=== PATIENT | male | born 1995 | race Caucasian/White ===

== ENCOUNTER 2022-03-07 07:04 | Inpatient (IN) | payer OTHER ==
--- OUTSIDE RECORDS SUMMARY | 2022-03-07 07:07 | XMS REPORT | Continuity of Care Document ---
:1995 Author Organization [facility] Address [address] [place] [address] [address]. [address] [place] [address] Care Team Providers Name Role Phone RJ Attending Clinician Unavailable DOBSON Attending Clinician Unavailable Problems This patient has no known problems. Allergies, Adverse Reactions, Alerts Allergy Allergy Status Severity Reaction(s) Onset Inactive Treating Comm ents Source Name Type Date Date Clinician NO KNOWN Allergy Active [facility] Medications This patient has no known medications. Procedures This patient has no known procedures. Encounters Start End Encounter Admission Attending Care Care Encounter Source Date/Time Date/Time Type Type Clinicians Facility Department ID 2020-04-16 2020-04-16 Outpatient RJ, [facility] [id number] [place] 00:00:00 00:00:00 BARBRA 892 Method i 2020-04-16 2020-04-16 Outpatient RJ, [facility] [id number] [place] 00:00:00 00:00:00 BARBRA 126 Method i 2020-03-04 2020-03-04 Outpatient DOBSON, [facility] [id number] [place] 00:00:00 00:00:00 JOSE 517 Method i 2019-12-24 2019-12-24 Emergency [facility] [id number] [facility] 21:49:00 21:49:00 [id number] Results Test Description Test Time Test Comments Results Result [facility] e Comments RAD, SPINE, 2019-12-24 Reason for FINAL REPORT PATIENT LUMBAR, COMPLETE 22:41:00 exam:->FALLnon ID: [id number] RAD, (MIN 4 VIEWS) syncopal /fell SPINE, LUMBAR, off a stationary COMPLETE (MIN 4 truck approx 7ft VIEWS) CLINICAL high Reason for INDICATION: FALL. exam:->BACK BACK PAIN PAINLOWER COMPARISON: None FINDINGS: Five views of the lumbar spine were obtained. Vertebral body heights and alignment are maintained. There is no spondylolysis. The intervertebral disc space heights are preserved. The bilateral sacroiliac joints are patent. The sacrum is partially obscured by overlying stool and bowel gas. IMPRESSION: No vertebral body compression fracture or subluxation. Signed: Yris Edwards [facility] Verified Date/Time: 12/24/2019 22:41:14
[2022-03-07] MEDS ORDERED: MAGNES/ALUMIN/SIMET 30ML UCUP ONE (08:23)
[2022-03-07 08:24] LABS: Absolute Lymphocytes (CBC) 2.3 K/uL (0.7-4.9); Hematocrit 46.4 % (39.6-49.0); Lymphocytes % 12.7 % (15.3-44.8); MPV 7.7 fL (7.6-11.3); RBC Red Blood Cell Count 5.38 M/uL (4.33-5.43)
[2022-03-07] MEDS ORDERED: NA CHLORIDE 0.9% 1,000 ML ONE (08:24)
[2022-03-07] MEDS ORDERED: ONDANSETRON 4 MG/2 ML VIAL ONE ×3 (08:24→18:24)
[2022-03-07] MEDS ORDERED: LIDOCAINE VISCOUS 2% SOLN 15 ML UDC ONE (08:24)
[2022-03-07] MEDS ORDERED: FAMOTIDINE 20 MG TAB ONE (08:24)
[2022-03-07] MEDS ORDERED: MORPHINE 4 MG/ML SYR ONE (08:24)
[2022-03-07 08:41] LABS: Albumin 4.1 g/dL (3.4-5.0); Bilirubin Total 0.6 mg/dL (0.2-1.0); Potassium 3.8 mmol/L (3.5-5.1); Protein, Total 7.6 g/dL (6.4-8.2)
[2022-03-07 10:01] LABS: Urine Blood Negative (Negative); Urine Glucose Negative (Negative); Urine Protein 1+ (Negative); Urine Specific Gravity >=1.030 (1.005-1.030)
--- NOTE | 2022-03-07 10:30 | RAD REPORT ---
EXAM DESCRIPTION: CTAbdomen Pelvis W Contrast - 03/07/2022 10:14 am CLINICAL HISTORY: Abdominal pain. Abdominal pain, acute, nonlocalized COMPARISON: <Comparisons> TECHNIQUE: Biphasic CT imaging of the abdomen and pelvis was performed with 100 ml non-ionic IV cont rast. All CT scans are performed using dose optimization technique as appropriate and may include automated exposure control or mA/KV adjustment according to patient size. FINDINGS: The lung bases are clear. The liver, spleen, pancreas, adrenal glands and kidneys are within normal limits. No bowel obstruction, free air, free fluid or abscess. The appendix is dilated to 9-10 mm with a sma ll amount of surrounding inflammation. No evidence of significant lymphadenopathy. No suspicious bony findings. IMPRESSION: Findings suspicious for early acute appendicitis.
[2022-03-07] MEDS ORDERED: NA CHLORIDE 0.9% 100 ML IV ONE (11:10)
[2022-03-07] MEDS ORDERED: PIPERACIL/TAZO 3.375 GM VIAL IV ONE (11:10)
--- NOTE | 2022-03-07 12:37 | EDPHYS ---
Physician Documentation [facility] Name: Sky Suarez Age: 26 yrs Sex: Male : 1995 Arrival Date: 03/07/2022 Time: 07:06 Bed 20 Private MD: ED Physician Yordan Romero HPI: 03/07 08:04 This 26 yrs old Male presents to ER via Ambulatory with complaints of Abdominal Pain. ma2 08:04 Onset: The symptoms/episode began/occurred gradually, 1 day(s) ago. Associated signs ma2 and symptoms: Pertinent negatives: nausea and vomiting, blood in stools, constipation, dysuria, fever, hematuria, palpitations, vomiting, vomiting blood. Severity of pain: At its worst the pain was moderate in the emergency department the pain is unchanged. epigastric abd pain. Historical: - Allergies: 07:15 No Known Allergies; ss - Home Meds: 07:15 Adderall XR Oral [Active]; ss - PMHx: 07:15 ADD; ss - PSHx: 07:15 None; ss - Immunization history:: Client reports having NOT received the Covid vaccine. - Social history:: Smoking status: Reported history of juuling and/or vaping. Patient uses alcohol, street drugs, marijuana, + vape, The patient lives. - Family history:: not pertinent. ROS: 08:04 Constitutional: Negative for fever, chills, and weight loss. ma2 08:04 All other systems are negative. Exam: 08:04 Constitutional: This is a well developed, well nourished patient who is awake, alert, ma2 and in no acute distress. Chest/axilla: Normal chest wall appearance and motion. Nontender with no deformity. No lesions are appreciated. Cardiovascular: Regular rate and rhythm with a normal S1 and S2. No gallops, murmurs, or rubs. Normal PMI, no JVD. No pulse deficits. Respiratory: Lungs have equal breath sounds bilaterally, clear to auscultation and percussion. No rales, rhonchi or wheezes noted. No increased work of breathing, no retractions or nasal flaring. Abdomen/GI: Soft, non-tender, with normal bowel sounds. No distension or tympany. No guarding or rebound. No evidence of tenderness throughout. Skin: Warm, dry with normal turgor. Normal color with no rashes, no lesions, and no evidence of cellulitis. MS/ Extremity: Pulses equal, no cyanosis. Neurovascular intact. Full, normal range of motion. Neuro: Awake and alert, GCS 15, oriented to person, place, time, and situation. Cranial nerves II-XII grossly intact. Motor strength 5/5 in all extremities. Sensory grossly intact. Cerebellar exam normal. Normal gait. Vital Signs: 07:13 BP 146 / 91; Pulse 83; Resp 16; Temp 98.1(TE); Pulse Ox 99% on R/A; Weight 95.25 kg; ss Height 6 ft. 0 in. (182.88 cm); Pain 7/10; 11:52 BP 104 / 62; Pulse 60; Resp 15; Pulse Ox 98% on R/A; ll1 07:13 Body Mass Index 28.48 (95.25 kg, 182.88 cm) ss MDM: 07:54 Patient medically screened. ma2 12:35 Differential diagnosis: cholecystitis, Cholelithiasis, diverticulitis, gastritis. Data ma2 reviewed: vital signs, nurses notes. Counseling: I had a detailed discussion with the patient and/or guardian regarding: the historical points, exam findings, and any diagnostic results supporting the discharge/admit diagnosis, the presence of at least one elevated blood pressure reading (>120/80) during this emergency department visit, the need for outpatient follow up. 03/07 08:04 Order name: CBC with Diff; Complete Time: 09:55 [facility] 03/07 08:04 Order name: CMP; Complete Time: 09:55 [facility] 03/07 08:04 Order name: Lipase; Complete Time: 09:55 [facility] 03/07 08:04 Order name: Urine Microscopic Only [facility] 03/07 10:02 Order name: Urine Dipstick-Ancillary; Complete Time: 10:58 [facility] 03/07 11:05 Order name: COVID-19 SARS RT PCR (Document "Date of Onset" if Symptomatic) 03/07 09:56 Order name: CT Abd/Pelvis - IV Contrast Only; Complete Time: 10:58 [facility] 03/07 12:45 Order name: Basic Metabolic Panel EDME 03/07 12:45 Order name: Basic Metabolic Panel [facility] 03/07 12:45 Order name: CBC with Automated Diff EDMS 03/07 12:45 Order name: CBC with Automated Diff EDMS 03/07 08:04 Order name: IV Saline Lock; Complete Time: 08:14 [facility] 03/07 08:04 Order name: Labs collected and sent; Complete Time: 08:14 [facility] 03/07 11:00 Order name: NPO; Complete Time: 11:02 [facility] 03/07 12:45 Order name: NPO; Complete Time: 14:25 EDMS Administered Medications: 08:38 Drug: Pepcid (famotidine) 20 mg {Note: given PO.} Route: IVP; Site: Other; ll1 11:01 Follow up: Response: No adverse reaction ll1 08:38 Drug: Zofran (Ondansetron) 4 mg Route: IVP; Site: right antecubital; ll1 11:01 Follow up: Response: No adverse reaction ll1 08:39 Drug: NS 0.9% 1000 ml Route: IV; Rate: 1 bolus; Site: right antecubital; ll1 09:51 Follow up: Response: No adverse reaction; IV Status: Completed infusion; IV Intake: ll1 1000ml 08:39 Drug: morphine 4 mg Route: IVP; Site: right antecubital; ll1 11:02 Follow up: Response: No adverse reaction ll1 08:39 Drug: GI Cocktail without - (Maalox Suspension 30 ml, Lidocaine Liquid 2 % 15 ll1 ml) Route: PO; 11:02 Follow up: Response: No adverse reaction ll1 11:15 Drug: Zosyn (piperacillin-tazobactam) 3.375 grams Route: IVPB; Infused Over: 60 mins; ll1 Site: right antecubital; 12:22 Follow up: Response: No adverse reaction; IV Status: Completed infusion; IV Intake: ll1 100ml Disposition Summary: 03/07/22 12:36 Hospitalization Ordered Hospitalization Status: Inpatient Admission ma2 Provider: Jose Geiger Condition: Stable ma2 Problem: new ma2 Symptoms: are unchanged ma2 Bed/Room Type: Standard ma2 Location: Telemetry/MedSurg (observation)(03/07/22 15:07) dw Room Assignment: [facility](03/07/22 15:07) dw Diagnosis - Unspecified acute appendicitis ma2 Discharge Instructions: - Discharge Summary Sheet ma2 - Abdominal Pain, Adult ma2 Forms: - Medication Reconciliation Form ma2 - SBAR form ma2 Prescriptions: - Zofran 4 mg Oral Tablet - take 1 tablet by ORAL route every 12 hours As needed; 20 tablet; Refills: 0, ma2 Product Selection Permitted - Pepcid 20 mg Oral Tablet - take 1 tablet by ORAL route once daily; 20 tablet; Refills: 0, Product ma2 Selection Permitted Signatures: Dispatcher [employer] Neetu Quarles RN RN dw Wendy Amaro RN RN Yordan Romero MD MD ma2 Ezeqiuel Batres RN RN ll1 Corrections: (The following items were deleted from the chart) 07:16 07:15 Home Meds: None; [facility] 07:16 07:15 PMHx: None; [facility] 15:07 12:36 Telemetry/MedSurg (Inpatient) ca2 15:07 12:36 ma2 dw
--- NOTE | 2022-03-07 12:37 | ER ---
Nurse's Notes [facility] Name: Sky Suarez Age: 26 yrs Sex: Male : 1995 Arrival Date: 03/07/2022 Time: 07:06 Bed 20 Private MD: Diagnosis: Unspecified acute appendicitis Presentation: 03/07 07:13 Chief complaint: Patient states: stabbing epigastric pain that began last night. Pt ss reports he took Pepto before going to bed which helped just enough to help him sleep. Coronavirus screen: Client denies travel out of the [place] in the last 14 days. Ebola Screen: Patient denies exposure to infectious person. Patient denies travel to an Ebola-affected area in the 21 days before illness onset. Initial Sepsis Screen: Does the patient meet any 2 criteria? No. Patient's initial sepsis screen is negative. Does the patient have a suspected source of infection? No. Patient's initial sepsis screen is negative. Risk Assessment: Do you want to hurt yourself or someone else? Patient reports no desire to harm self or others. Onset of symptoms was March 08, 2022. 07:13 Method Of Arrival: Ambulatory ss 07:13 Acuity: DINO 3 ss Triage Assessment: 12:20 General: Appears in no apparent distress. Behavior is calm, cooperative. ll1 Historical: - Allergies: 07:15 No Known Allergies; ss - Home Meds: 07:15 Adderall XR Oral [Active]; ss - PMHx: 07:15 ADD; ss - PSHx: 07:15 None; ss - Immunization history:: Client reports having NOT received the Covid vaccine. - Social history:: Smoking status: Reported history of juuling and/or vaping. Patient uses alcohol, street drugs, marijuana, + vape, The patient lives. - Family history:: not pertinent. Screenin:41 Abuse screen: Denies threats or abuse. Nutritional screening: No deficits noted. ll1 Tuberculosis screening: No symptoms or risk factors identified. Fall Risk IV access (20 points). Total Torres Fall Scale indicates No Risk (0-24 pts). Assessment: 08:15 Pain: Complains of pain in abdomen Pain currently is 6 out of 10 on a pain scale. ll1 Quality of pain is described as crampy, sharp. GI: Bowel sounds present X 4 quads. Abd is soft and non tender X 4 quads. Reports upper abdominal pain, cramping, diarrhea, nausea. 08:41 Reassessment: No changes from previously documented assessment. Patient and/or family ll1 updated on plan of care and expected duration. Pain level reassessed. Patient is alert, oriented x 3, equal unlabored respirations, skin warm/dry/pink. 09:30 Reassessment: No changes from previously documented assessment. Patient and/or family ll1 updated on plan of care and expected duration. Pain level reassessed. Patient is alert, oriented x 3, equal unlabored respirations, skin warm/dry/pink. 10:30 Reassessment: No changes from previously documented assessment. Patient and/or family ll1 updated on plan of care and expected duration. Pain level reassessed. Patient is alert, oriented x 3, equal unlabored respirations, skin warm/dry/pink. 11:30 Reassessment: No changes from previously documented assessment. Patient and/or family ll1 updated on plan of care and expected duration. Pain level reassessed. Patient is alert, oriented x 3, equal unlabored respirations, skin warm/dry/pink. Vital Signs: 07:13 BP 146 / 91; Pulse 83; Resp 16; Temp 98.1(TE); Pulse Ox 99% on R/A; Weight 95.25 kg; ss Height 6 ft. 0 in. (182.88 cm); Pain 7/10; 11:52 BP 104 / 62; Pulse 60; Resp 15; Pulse Ox 98% on R/A; ll1 07:13 Body Mass Index 28.48 (95.25 kg, 182.88 cm) ED Course: 07:06 Patient arrived in ED. mr 07:15 Triage completed. ss 07:15 Arm band placed on right wrist. ss 07:53 Ezequiel Batres, PRASANTH is Primary Nurse. ll1 07:53 Patient placed in an exam room, on a stretcher. ll1 07:54 Yordan Romero MD is Attending Physician. ma2 08:13 Bed in low position. Call light in reach. Side rails up X 1. tp1 08:13 Inserted saline lock: 20 gauge in right antecubital area, using aseptic technique. tp1 Blood collected. 10:16 CT Abd/Pelvis - IV Contrast Only In Process Unspecified. EDNM 12:20 No provider procedures requiring assistance completed. Patient admitted, IV remains in ll1 place. 12:36 Jose Geiger MD is Hospitalizing Provider. ma2 Administered Medications: 08:38 Drug: Pepcid (famotidine) 20 mg {Note: given PO.} Route: IVP; Site: Other; ll1 11:01 Follow up: Response: No adverse reaction 1 08:38 Drug: Zofran (Ondansetron) 4 mg Route: IVP; Site: right antecubital; ll1 11:01 Follow up: Response: No adverse reaction 1 08:39 Drug: NS 0.9% 1000 ml Route: IV; Rate: 1 bolus; Site: right antecubital; ll1 09:51 Follow up: Response: No adverse reaction; IV Status: Completed infusion; IV Intake: ll1 1000ml 08:39 Drug: morphine 4 mg Route: IVP; Site: right antecubital; 1 11:02 Follow up: Response: No adverse reaction 1 08:39 Drug: GI Cocktail without - (Maalox Suspension 30 ml, Lidocaine Liquid 2 % 15 ll1 ml) Route: PO; 11:02 Follow up: Response: No adverse reaction 1 11:15 Drug: Zosyn (piperacillin-tazobactam) 3.375 grams Route: IVPB; Infused Over: 60 mins; 1 Site: right antecubital; 12:22 Follow up: Response: No adverse reaction; IV Status: Completed infusion; IV Intake: ll1 100ml Medication: 08:41 VIS not applicable for this client. 1 Intake: 09:51 IV: 1000ml; Total: 1000ml. 1 12:22 IV: 100ml; Total: 1100ml. 1 Outcome: 12:20 Admitted to Med/surg room ER HOLD. 1 12:20 Condition: stable 12:20 Instructed on the need for admit. 12:36 Decision to Hospitalize by Provider. ma2 15:25 Patient left the ED. 1 Signatures: Dispatcher [employer] EDNM Brad Qian KaiWendy venegas RN RN ss Alzahri, Mohammad, MD MD ma2 Ezequiel Batres RN RN 1 Jyotsna Avila Corrections: (The following items were deleted from the chart) 07:16 07:15 Home Meds: None; [facility] 07:15 PMHx: None; [facility]
[2022-03-07] MEDS ORDERED: ONDANSETRON 4 MG/2 ML VIAL IV PRN ×2 (12:41→18:52)
[2022-03-07 13:36] VITALS: BMI 28.5
[2022-03-07] MEDS ORDERED: Ringers Lactate 1,000 ML IV ONE (15:31)
--- NOTE | 2022-03-07 16:34 | P.HP ---
Date of Service: 03/07/22 PC: This 26-year-old male presented to the emergency room with severe right lower quadrant abdominal pain for diagnosis and treatment. HPC: Patient been feeling well yesterday, but started to have some upper abdominal pain. Pain is now located more around his umbilicus in the right lower quadrant. Hurts when he tries to walk. PSHx: Negative PMHx: Negative Social Hx: No known allergies Sys R: No cough, wheeze, shortness of breath. No chest pain or palpitations. Denies any urinary complaints. O/E: Awake alert vital signs are stable HEENT: Not jaundiced Chest: Chest movement equal bilaterally Abd: Tender with guarding and rebound in the right lower quadrant [place]: In tact Data: Elevated white cell count, CT scan supports clinical diagnosis of acute abdomen with appendicitis Impression: Acute abdomen with appendicitis Plan: I will taken the operating room for laparoscopic possible open appendectomy. Risks of this procedure have been discussed. The possibility of bleeding, infection, injury to bowel blood vessels and surrounding structures were outlined. The possible need for open and/or further surgeries and procedures was discussed. He understands and wants to proceed.
[2022-03-07] MEDS ORDERED: LIDOCAINE 2% MPF 5 ML VIAL ONE (16:41)
[2022-03-07] MEDS ORDERED: ROCURONIUM 50 MG/5 ML VIAL IV ONE (16:41)
[2022-03-07] MEDS ORDERED: propofoL 200 MG/20 ML VIAL IV ONE (16:41)
[2022-03-07] MEDS ORDERED: FENTANYL CITR 100 MCG/2 ML ONE ×2 (16:42→17:20)
[2022-03-07] MEDS: BUPIVACAINE 0.5% Inj,MDV 50 mL VIAL ONE ×2 (17:02→17:08)
[2022-03-07] MEDS ORDERED: KETOROLAC 30 MG/ML INJ ONE (17:08)
[2022-03-07] MEDS ORDERED: dexAMETHasone 10 MG/ML VIAL ONE (17:09)
[2022-03-07] MEDS ORDERED: GLYCOPYRROLATE 0.2 MG/ML SYR ONE (17:23)
[2022-03-07] MEDS ORDERED: NEOSTIGMINE 1 MG/ML -10 ML VIAL ONE (17:24)
[2022-03-07] MEDS: HYDROMORPHONE HCL 1 MG/ML INJ ONE ×4 (18:04→18:27)
--- NOTE | 2022-03-07 18:40 | P.OP ---
Preoperative diagnosis: Acute abdomen with appendicitis Postoperative diagnosis: The same Primary procedure: Laparoscopic appendectomy Anesthesia: General Estimated blood loss: Less than 10 cc Specimen: 1 appendix Operative Technique: The patient brought the operating room and placed supine on the table. After the induction of adequate general endotracheal anesthesia, the area of the abdomen was prepped with a chlorhexidine solution, and draped in usual aseptic manner. A subumbilical incision was made. This was brought down through the skin and subcutaneous tissue. Blunt finger was then used to clear the fat down to the level of the fascia. We attempted to use a Veress needle to enter the peritoneal cavity but was unsuccessful. Hence the fascia was elevated with 2 hemostats. We gently divided the midline until we encountered the peritoneum. I was able to widen the hole with the index finger and breakthrough with a blunt entry. Having done this is where area was replaced by using our 12 mm trocar. We now created created pneumoperitoneum to approximately 12 mmHg. Under direct vision a 5 mm trocar was placed in the lower midline, and another on the right lateral side of the abdomen. On visualization of the peritoneal cavity we could see in the right lower quadrant and acutely inflamed appendix. With the patient placed in reverse Trendelenburg and rolled the table to the left we could see clearly the junction of this inflamed appendix with the cecum. The appendix was elevated. A window was made in the mesentery of the appendix just at the base of the cecum. We were now able to pass our linear stapler into the peritoneal cavity placed across the base of the appendix at its junction with the cecum and fired. The mesentery of the appendix was now taken down with a vascular reload. At this point the specimen was placed into an Endo Catch and brought out through our umbilical trocar site. Attention was turned back towards the right lower quadrant. Once again the area was irrigated aspirating the irrigant from the peritoneal cavity. Hemostasis having been ensured, the patient was now returned to the neutral position on the OR table. The umbilical trocar site was approximated using the Endo Close and an absorbable stitch. The trochars were removed, the pneumoperitoneum collapsed, and the suture tied. At this point luiz were applied to the skin. At the end of the procedure he was stable and sent to the recovery room. Needle sponge instrument count were correct. No drains were placed. Complications: None Transferred to: Recovery Room Condition: Good
[2022-03-07] MEDS ORDERED: HYDROCODONE/APAP 7.5/325 MG TAB PO PRN (18:52)
[2022-03-07] MEDS: MORPHINE 4 MG/ML SYR IV PRN (21:11)
[2022-03-07] MEDS: D5 0.45 NS 1,000 ML IV SCH (21:16)
[2022-03-07] MEDS: PIPER TAZO 3.375 GM in NA CHLORIDE 0.9% 100 ML IV SCH (21:16)
[2022-03-08] MEDS: PIPER TAZO 3.375 GM in NA CHLORIDE 0.9% 100 ML IV SCH ×2 (01:00→07:52)
[2022-03-08] MEDS: MORPHINE 4 MG/ML SYR IV PRN ×2 (01:38→07:52)
[2022-03-08] MEDS: D5 0.45 NS 1,000 ML IV SCH ×2 (05:11→09:00)
[2022-03-08 09:50] VITALS: O2SAT 97
[2022-03-08 11:46] VITALS: BP 119/57; TEMP 98.1
== END 2022-03-08 12:15 | disposition home or self-care (01) | DRG 343 ==
LOC: ER 07:04 → ERHOLD 13:16 → 2ND 17:27
PROVIDERS: ADMIT Surgery; ATTEND Surgery
PROC: 0DTJ4ZZ Resection of Appendix, Percutaneous Endoscopic Approach (ICD-10-PCS; principal; 2022-03-07 17:00)
DX: K35.80 Unspecified acute appendicitis (principal); Z20.822 Contact with and (suspected) exposure to COVID-19
CPT/HCPCS: 36415; 74177; 80053; 81003; 83690; 85025; 88304; 99285; J1100; J1170; J2405; J2543; J2704; J2710; J3010; J7030; J7120; J7799; Q9967; U0003

== ENCOUNTER 2022-03-08 16:11 | Emergency (ER) | payer OTHER ==
--- OUTSIDE RECORDS SUMMARY | 2022-03-08 16:13 | XMS REPORT | Continuity of Care Document ---
:1995 Author Organization [facility] t Address [address] [place] [address] Care Team Providers Name Role Phone RJ Attending Clinician Unavailable DOBSNO Attending Clinician Unavailable Problems This patient has no known problems. Allergies, Adverse Reactions, Alerts Allergy Allergy Status Severity Reaction(s) Onset Inactive Treating Comm ents Source Name Type Date Date Clinician NO KNOWN Allergy Active [facility] Medications This patient has no known medications. Procedures This patient has no known procedures. Encounters Start End Encounter Admission Attending Care Care Encounter Source Date/Time Date/Time Type Type Clinicians Facility Department ID 2020-04-16 2020-04-16 Outpatient RJ, [facility] [id number] [place] 00:00:00 00:00:00 BARBRA 892 Method i 2020-04-16 2020-04-16 Outpatient RJ, [facility] [id number] [place] 00:00:00 00:00:00 BARBRA 126 Method i 2020-03-04 2020-03-04 Outpatient DOBSON, [facility] [id number] [place] 00:00:00 00:00:00 JOSE 517 Method i 2019-12-24 2019-12-24 Emergency [facility] [id number] [facility] 21:49:00 21:49:00 [id number] Results Test Description Test Time Test Comments Results Result [facility] e Comments RAD, SPINE, 2019-12-24 Reason for FINAL REPORT PATIENT LUMBAR, COMPLETE 22:41:00 exam:->FALLnon ID: [id number] RAD, (MIN 4 VIEWS) syncopal /fell SPINE, [...] compression fracture or subluxation. Signed: [facility] Verified Date/Time: 12/24/2019 22:41:14
[2022-03-08] MEDS ORDERED: HYDROCODONE/APAP 10/325 TAB ONE (17:10)
[2022-03-08] MEDS ORDERED: KETOROLAC 30 MG/ML INJ ONE (17:11)
--- NOTE | 2022-03-08 17:57 | EDPHYS ---
Physician Documentation [facility] [place] Name: Sky Suarez Age: 26 yrs Sex: Male : 1995 Arrival Date: 03/08/2022 Time: 16:13 Bed 10 Private MD: ED Physician Yordan Romero HPI: 03/08 16:50 This 26 yrs old Male presents to ER via Ambulatory with complaints of Post Surgical pm1 Pain. 16:50 Onset: The symptoms/episode began/occurred today. Associated signs and symptoms: pm1 Pertinent negatives: shortness of breath. Modifying factors: The patient symptoms are alleviated by nothing, the patient symptoms are aggravated by lack of prescription pain medications. The patient has not experienced similar symptoms in the past. The patient has been recently seen by a physician: Dr. Geiger for acute appendicitis admitted yesterday and had surgery. Patient presenting to the ER today with right shoulder pain. Historical: - Allergies: 16:47 No Known Allergies; vg1 - Home Meds: 16:47 Adderall XR Oral [Active]; vg1 - PMHx: 16:47 ADD; vg1 - PSHx: 16:47 Appendectomy; vg1 - Immunization history:: Client reports having NOT received the Covid vaccine. - Social history:: Smoking status: Reported history of juuling and/or vaping. ROS: 16:50 Constitutional: Negative for fever, chills, and weight loss, Cardiovascular: Negative pm1 for chest pain, palpitations, and edema, Respiratory: Negative for shortness of breath, cough, wheezing, and pleuritic chest pain. 16:50 MS/Extremity: Negative for injury and deformity, Skin: Negative for injury, rash, and discoloration, Neuro: Negative for headache, weakness, numbness, tingling, and seizure. 16:50 Back: Positive for of the right trapezius, pain. 16:50 All other systems are negative. Exam: 16:50 Constitutional: This is a well developed, well nourished patient who is awake, alert, pm1 and in no acute distress. Head/Face: Normocephalic, atraumatic. 16:50 Skin: Warm, dry with normal turgor. Normal color with no rashes, no lesions, and no evidence of cellulitis. 16:50 Eyes: Exam is negative for acute changes, Extraocular movements: no acute changes, Conjunctiva: no acute changes, no injection. 16:50 Neck: External neck: tenderness, of the right trapezius. 16:50 Cardiovascular: Exam negative for acute changes, Rate: normal, Rhythm: regular, Pulses: no pulse deficits are appreciated. 16:50 Respiratory: Exam negative for acute changes, respiratory distress, shortness of breath. 16:50 Back: pain, that is moderate, of the right trapezius. 16:50 Neuro: Exam negative for acute changes, Orientation: is normal, Motor: is normal, moves all fours. Vital Signs: 16:45 BP 142 / 71; Pulse 66; Resp 18; Temp 98.4(O); Pulse Ox 98% on R/A; Weight 95.25 kg; vg1 Height 6 ft. 0 in. (182.88 cm); Pain 7/10; 16:45 Body Mass Index 28.48 (95.25 kg, 182.88 cm) vg1 MDM: 16:50 Physician consultation: Jose Geiger MD Patient was evaluated by Dr. Geiger who pm1 performed appendectomy yesterday. Dr. Geiger explained the cause for the patient's right shoulder pain and has sent pain medications to the pharmacy for the patient. 16:59 Patient medically screened. pm1 17:36 Data reviewed: vital signs. Data interpreted: Pulse oximetry: on room air is 98 %. pm1 Interpretation: normal. Counseling: I had a detailed discussion with the patient and/or guardian regarding: the historical points, exam findings, and any diagnostic results supporting the discharge/admit diagnosis, lab results, radiology results, the need for outpatient follow up, to return to the emergency department if symptoms worsen or persist or if there are any questions or concerns that arise at home. Administered Medications: 17:15 Drug: [place] (HYDROcodone-acetaminophen) 10 mg-325 mg 1 tabs Route: PO; ss 18:02 Follow up: Response: No adverse reaction ss 17:15 Drug: Ketorolac 60 mg Route: IM; Site: left gluteus; ss 18:03 Follow up: Response: No adverse reaction ss Disposition Summary: 03/08/22 17:56 Discharge Ordered Location: Home pm1 Problem: new pm1 Symptoms: have improved pm1 Condition: Stable pm1 Diagnosis - Post operative pain pm1 Followup: pm1 - With: Emergency Department - When: As needed - Reason: Worsening of condition Followup: pm1 - With: Jose Geiger MD - When: As scheduled with Dr. Geiger - Reason: Recheck today's complaints, Continuance of care, Re-evaluation by your physician Forms: - Medication Reconciliation Form pm1 - Thank You Letter pm1 - Antibiotic Education pm1 - Prescription Opioid Use pm1 Signatures: Wendy Amrao, PRASANTH RN ss Victor Manuel Campbell NP TEMPORARY RECEPTIONIST pm1 Kesha Younger RN RN vg1
--- NOTE | 2022-03-08 17:57 | ER ---
Nurse's Notes [facility] Name: Sky Suarez Age: 26 yrs Sex: Male : 1995 Arrival Date: 03/08/2022 Time: 16:13 Bed 10 Private MD: Diagnosis: Post operative pain Presentation: 03/08 16:45 Chief complaint: Patient states: pt had an appendectomy yesterday and states Right vg1 shoulder pain; surgical site clean, dry, without redness. Coronavirus screen: Vaccine status: Patient reports being unvaccinated. Client denies travel out of the [place] in the last 14 days. Ebola Screen: Patient denies exposure to infectious person. Patient denies travel to an Ebola-affected area in the 21 days before illness onset. Initial Sepsis Screen: Does the patient meet any 2 criteria? No. Patient's initial sepsis screen is negative. Does the patient have a suspected source of infection? No. Patient's initial sepsis screen is negative. Risk Assessment: Do you want to hurt yourself or someone else? Patient reports no desire to harm self or others. Onset of symptoms was March 08, 2022. 16:45 Method Of Arrival: Ambulatory vg1 16:45 Acuity: DINO 4 vg1 Triage Assessment: 16:47 General: Appears uncomfortable, Behavior is calm, cooperative. Pain: Complains of pain vg1 in Right shoulder Pain currently is 7 out of 10 on a pain scale. Respiratory: Airway is patent Respiratory effort is even, unlabored. Historical: - Allergies: 16:47 No Known Allergies; vg1 - Home Meds: 16:47 Adderall XR Oral [Active]; vg1 - PMHx: 16:47 ADD; vg1 - PSHx: 16:47 Appendectomy; vg1 - Immunization history:: Client reports having NOT received the Covid vaccine. - Social history:: Smoking status: Reported history of juuling and/or vaping. Screenin:16 Abuse screen: Denies threats or abuse. Denies injuries from another. Nutritional ss screening: No deficits noted. Tuberculosis screening: Never had TB. Fall Risk None identified. Assessment: 17:16 General: Appears uncomfortable, Behavior is calm, cooperative, Denies fever, feeling ss ill. Pain: Complains of pain in R shoulder Pain currently is 6 out of 10 on a pain scale. Quality of pain is described as aching. Neuro: [place] Agitation-Sedation Scale (RASS): +1 Restless Level of Consciousness is awake, alert, obeys commands, Oriented to person, place, time, situation. Cardiovascular: Capillary refill < 3 seconds is brisk in bilateral fingers. Respiratory: Airway is patent Respiratory effort is even, unlabored, Respiratory pattern is regular, symmetrical. GI: Abdomen is mildly distended. Small areas of bruising where surgical incisions are Patient currently denies diarrhea, nausea, vomiting. EENT: Nares are clear Oral mucosa is moist. Throat is clear. Derm: Skin is intact, is healthy with good turgor, Skin is dry, Skin is pink, warm \T\ dry. normal. Vital Signs: 16:45 BP 142 / 71; Pulse 66; Resp 18; Temp 98.4(O); Pulse Ox 98% on R/A; Weight 95.25 kg; vg1 Height 6 ft. 0 in. (182.88 cm); Pain 7/10; 16:45 Body Mass Index 28.48 (95.25 kg, 182.88 cm) vg1 ED Course: 16:13 Patient arrived in ED. ds1 16:43 Victor Manuel Campbell, LUIS F is PHCP. pm1 16:43 Yordan Romero MD is Attending Physician. pm1 16:47 Triage completed. vg1 16:47 Arm band placed on. vg1 16:59 Wendy Amaro, PRASANTH is Primary Nurse. ss 17:16 Patient has correct armband on for positive identification. Bed in low position. Call ss light in reach. 17:55 Jose Geiger MD is Referral Physician. pm1 18:02 No provider procedures requiring assistance completed. Patient did not have IV access ss during this emergency room visit. Administered Medications: 17:15 Drug: [place] (HYDROcodone-acetaminophen) 10 mg-325 mg 1 tabs Route: PO; ss 18:02 Follow up: Response: No adverse reaction ss 17:15 Drug: Ketorolac 60 mg Route: IM; Site: left gluteus; ss 18:03 Follow up: Response: No adverse reaction ss Medication: 17:16 VIS not applicable for this client. ss Outcome: 17:56 Discharge ordered by . pm1 18:02 Discharged to home ambulatory. ss 18:02 Condition: good 18:02 Discharge instructions given to patient, Instructed on discharge instructions, follow up and referral plans. Demonstrated understanding of instructions, follow-up care. 18:02 Patient left the ED. Signatures: Debbie Huffman ds1 Wendy Amaro, RN RN ss Victor Manuel Campbell, CRYSTAL REPORT DEVELOPER CRYSTAL REPORT DEVELOPER pm1 Kesha Younger, RN RN vg1 Corrections: (The following items were deleted from the chart) 16:48 16:45 Chief complaint: Patient states: pt had an appendectomy yesterday and states vg1 Right shoulder pain; surgical site clean, dry, without redeness. vg1 18:04 17:16 GI: Abdomen is non-distended, Patient currently denies diarrhea, nausea, ss vomiting, ss
[2022-03-08 18:27] VITALS: BP 142/71; TEMP 98.4; O2SAT 98
== END 2022-03-08 18:02 | disposition home or self-care (01) ==
LOC: ER 16:11
DX: G89.18 Other acute postprocedural pain (principal); F17.290 Nicotine dependence, other tobacco product, uncomplicated
CPT/HCPCS: 96372; 99283